=== PATIENT | female | born 1950 | race Caucasian/White ===

== ENCOUNTER 2020-06-08 13:09 | Emergency (ER) | payer MEDICARE, MEDICAID ==
[~2020-06-08] VITALS: Ht 157.5 cm; Wt 49.9 kg
[~2020-06-08 13:09] MED LIST: BACL10TA PO; CARB-93 PO; CLON0.5T4 PO; DICL100G16 TP; ENTA200T PO; FAMO20TA80 PO; LORA0.5T PO; POLY250017 PO; TRAM50TA PO
--- NOTE | 2020-06-08 13:18 | NUR ---
[facility] C/O LOWER ABDOMINAL PAIN MUCH WORSE THIS AM. PATIENT A/OX4, BREATHING EVEN AND UNLABORED, NO SOB NOTED.
--- NOTE | 2020-06-08 13:51 | NUR ---
PATIENT ATTEMPTED TO USE THE RESTROOM , UNABLET O GIVE A URINE SAMPLE.
[2020-06-08 13:54] LABS: BASOPHILS # (AUTO) 0.1 /CMM (0.0-0.2); BASOPHILS % (AUTO) 1.3 % (0.0-2.0); EOSINOPHILS % (AUTO) 2.3 % (0.0-6.0); HEMATOCRIT 38 % (33-45); HEMOGLOBIN 12.4 g/dL (11.5-14.8); LYMPHOCYTES # (AUTO) 1.4 /CMM (0.8-4.8); LYMPHOCYTES % (AUTO) 24.4 % (20.0-44.0); MEAN CORPUSCULAR HGB CONC 33 g/dl (31.0-36.0); MEAN CORPUSCULAR VOLUME 95 fL (82-100); MONOCYTES # (AUTO) 0.5 /CMM (0.1-1.30); MONOCYTES % (AUTO) 8.9 % (2.0-12.0); NEUTROPHILS # (AUTO) 3.7 /CMM (1.8-8.9); NEUTROPHILS % (AUTO) 63.1 % (43.0-81.0); PLATELET COUNT (AUTO) 284 /CMM (150-450); RED BLOOD CELL COUNT(AUTO) 3.95 MIL/uL (4.0-5.2); WHITE BLOOD COUNT (AUTO) 5.8 K/uL (4.3-11.0)
[2020-06-08] MEDS ORDERED: SERT100T PO (14:09)
[2020-06-08] MEDS ORDERED: PREG50CA PO (14:09)
[2020-06-08] MEDS ORDERED: LACT10SO68 PO (14:09)
[2020-06-08] MEDS ORDERED: CARV6.252 PO (14:09)
[2020-06-08] MEDS ORDERED: CHOL400T11 PO (14:09)
[2020-06-08] MEDS ORDERED: CARV3.122 PO (14:09)
[2020-06-08] MEDS ORDERED: ALEN70TA69 PO (14:09)
[2020-06-08] MEDS ORDERED: ACET325T53 PO (14:09)
[2020-06-08] MEDS ORDERED: DIVA-78 PO (14:09)
[2020-06-08] MEDS ORDERED: QUET50TA PO (14:09)
[2020-06-08] MEDS ORDERED: CARB1CAP5 PO (14:09)
[2020-06-08 14:21] LABS: ALANINE AMINOTRANSFERASE < 6 U/L (12-78); ALBUMIN 3.7 g/dL (3.4-5.0); ALKALINE PHOSPHATASE 107 U/L (46-116); ASPARTATE AMINOTRANSFERASE 13 U/L (15-37); BILIRUBIN,DIRECT 0.1 mg/dL (0.0-0.2); BILIRUBIN,TOTAL 0.4 mg/dL (0.2-1.0); CALCIUM, SERUM 8.7 mg/dL (8.5-10.1); CARBON DIOXIDE 28 mmol/L (21-32); CHLORIDE 105 mmol/L (98-107); CREATININE 1.1 mg/dL (0.6-1.3); GLUCOSE 84 mg/dL (74-106); LIPASE 179 U/L (73-393); POTASSIUM 4.3 mmol/L (3.5-5.1); SODIUM SERUM 140 mmol/L (136-145); TOTAL PROTEIN, SERUM 6.9 g/dL (6.4-8.2); UREA NITROGEN, BLOOD 32 mg/dL (7-18)
--- NOTE | 2020-06-08 14:30 | NUR ---
URINE SAMPLE PROVIDED AND SENT TO LAB.
[2020-06-08 14:45] LABS: BILIRUBIN,URINE NEGATIVE (NEGATIVE); BLOOD, URINE TRACE-INTA Ery/uL (NEGATIVE); COLOR,URINE YELLOW (YELLOW); LEUKOCYTE ESTERASE ,URINE TRACE (NEGATIVE); NITRITE, URINE NEGATIVE (NEGATIVE); PROTEIN,URINE NEGATIVE (NEGATIVE); UGLUCOSE NEGATIVE (NEGATIVE); UROBILINOGEN,URINE 0.2 EU/dL (0.2)
[2020-06-08 14:56] LABS: BACTERIA,URINE Rare /HPF (None Seen); RBC,URINE 0-2 /HPF (0-2); SQUAMOUS EPITHELIAL CELL,UR 0-2 /HPF (None Seen)
--- NOTE | 2020-06-08 16:14 | NUR ---
[facility]S TRANSPORT ETA 183
--- NOTE | 2020-06-08 17:00 | NUR ---
PATIENT PROVIDED FOOD TRAY, AND TOLERATED MEALS. PATIENT RESTING AT THIS TIME.
[2020-06-08 18:49] VITALS: BP 114/80
--- NOTE | 2020-06-08 18:49 | NUR ---
REPORT GIVEN TO COLLATOR. PATIENT A/OX3, BREATHING EVEN AND UNLABORED, NO SOB NOTED. NEEDS ATTENDED. KEPT COMFORTABLE. Patient discharged to [facility] in stable condition. Written and verbal after care instructions given. Patient verbalizes understanding of instruction.
== END 2020-06-08 18:49 ==
LOC: ER 13:22
DX: S32.028A Other fracture of second lumbar vertebra, initial encounter for closed fracture (principal); S32.038A Other fracture of third lumbar vertebra, initial encounter for closed fracture; R10.30 Lower abdominal pain, unspecified; K59.00 Constipation, unspecified; G20 Parkinson's disease; K21.9 Gastro-esophageal reflux disease without esophagitis; Z88.5 Allergy status to narcotic agent; Z88.8 Allergy status to other drugs, medicaments and biological substances; Z79.899 Other long term (current) drug therapy; W19.XXXA Unspecified fall, initial encounter; Y93.89 Activity, other specified; Y92.89 Other specified places as the place of occurrence of the external cause; Y99.8 Other external cause status
CPT/HCPCS: 36415; 80048-TC; 80076-TC; 81001; 83690-TC; 84484-TC; 85025-TC